=== PATIENT | female | born 1985 | race Two or more races ===

== ENCOUNTER 2024-09-16 15:24 | Emergency (ER) | payer MEDICAID, SELFPAY ==
[2024-09-16 15:54] VITALS: BP 115/81; PULSE 120; RESP 18; TEMP 36.9; O2SAT 95; BMI 32.0
--- NOTE | 2024-09-16 15:59 | XR_ITS ---
Examination: CT abdomen and pelvis without contrast. Coronal 3-D reconstructions. Sagittal 2-D reconstructions. Date and time of exam:09/16/2024 1604 hours INDICATIONS: Lower abdominal pain nausea vomiting beginning 3 days ago CTDI: vol (mGy): 10.4 DLP: (mGycm): 645 Technique: Axial images of the abdomen have been obtained, 3 mm slice thickness Intravenous contrast material has not been administered. Low dose protocols were performed. One or more of the following dose reduction techniques were used; automated exposure control, adjustment of the mA and/or KV according to patient size, use of iterative reconstruction technique. Findings: Axial image 5 demonstrates intracapsular right breast implant rupture No visualized liver or splenic lesion Absent gallbladder No enlargement common bile duct No pancreatic or adrenal mass No renal or ureteral calculi, no hydronephrosis Aorta is not enlarged Normal appendix Small bowel loops show fluid distention and mild wall thickening Anteverted uterus Poorly defined partially hypodense mass above the bladder in the pelvis, which may measure up to 8 cm in transverse dimension Urinary bladder intact Advanced disc narrowing L5-S1 IMPRESSION: Consider elective MRI breast without contrast follow-up to confirm intracapsular right breast implant rupture Poorly defined partially hypodense mass above the bladder in the pelvis, measuring up to 8 cm in transverse dimension, recommend transvaginal transabdominal pelvic sonography follow-up Small bowel ileus versus enteritis
--- NOTE | 2024-09-16 15:59 | PD.EDRME ---
Rapid Medical Screening Exam RME Arrival date/time: 09/16/24 15:24 39-year-old female presents to the emergency department for complaint of generalized abdominal pain Chief Complaint: Abdominal Pain Vital signs: Vital Signs Temperature 98.5 F 09/16/24 15:54 Pulse Rate 120 H 09/16/24 15:54 Respiratory Rate 18 09/16/24 15:54 Blood Pressure 115/81 09/16/24 15:54 Pulse Oximetry (%) 95 09/16/24 15:54 Oxygen Delivery Method Room Air 09/16/24 15:54
[2024-09-16] MEDS: KETOROLAC INJ 30 MG/ML VIAL IM (16:34)
[2024-09-16 16:35] LABS: Basophils % (Auto) 0 % (0-2.5); Eosinophils % (Auto) 0 % (0-10); Hematocrit 42.9 % (36.0-46.0); Hemoglobin 14.6 g/dL (12.0-16.0); Immature Granulocytes % (Auto) 0 % (0-0); Immature Granulocytes Auto 0.03 Thou/mm3 (0.00-0.00); Lymphocytes # (Auto) 0.7 Thou/mm3 (1.0-4.8); Lymphocytes % (Auto) 6 % (10-50); Mean Corpuscular Hemoglobin 30.3 pg (25.0-35.0); Mean Corpuscular Volume 89 fL (80-100); Monocytes # (Auto) 0.7 Thou/mm3 (0.0-0.8); Monocytes % (Auto) 6 % (0-12); Neutrophils # (Auto) 10.3 Thou/mm3 (1.8-7.7); Neutrophils % (Auto) 88 % (37-80); Nucleated Red Blood Cell % 0 /100 WBC (0); Platelet Count 266 Thou/mm3 (140-440); RDW Standard Deviation 43.2 fL (36.4-46.3); Red Blood Count 4.82 Miln/mm3 (4.00-5.20); White Blood Count 11.7 Thou/mm3 (3.6-11.0)
[2024-09-16 16:47] LABS: Alanine Aminotransferase 17 U/L (10-49); Albumin, Serum 4.6 gm/dL (3.5-5.0); Albumin/Globulin Ratio 1.6 (1.2-2.2); Alkaline Phosphatase 86 U/L (46-116); Anion Gap 8 (7-16); Aspartate Amino Transferase 19 U/L (0-34); BUN/Creatinine Ratio 20 Ratio (12-20); Bilirubin,Total 0.4 mg/dL (0.3-1.2); Blood Urea Nitrogen 18 mg/dL (9-23); Calcium 9.6 mg/dL (8.3-10.6); Calcium (Corrected) 9.6 mg/dL (8.5-10.1); Carbon Dioxide 28.1 mMol/L (20.0-31.0); Chloride 104 mMol/L (98-107); Creatinine (Component) 0.9 mg/dL (0.6-1.3); Estimated Creatinine Clearance 94.8 mL/min (>60); Globulin 2.9 gm/dL (2.3-3.5); Glucose 106 mg/dL (74-106); Lipase 38 U/L (12-53); Osmolality,Calculated 281 (275-295); Potassium 4.2 mMol/L (3.4-5.1); Sodium 140 mMol/L (136-145); Total Protein 7.5 gm/dL (5.7-8.2); Troponin I < 0.002 ng/mL (0.0-0.045); eGFR > 60 See Note
[2024-09-16 16:56] LABS: HCG Qualitative,Urine Negative
--- NOTE | 2024-09-16 17:44 | PD.EDABDPN ---
ED Abdominal Pain RME/HPI General Chief Complaint: Abdominal Pain Stated complaint: Abdominal pain x3 days Time seen by provider: 09/16/24 17:40 Arrival date/time: 39-year-old female is here today with intermittent epigastric pain. She states is has been occurring for a number of years but got worse over the past 2 to 3 days. She had 1 episode of loose stool this morning with no blood. She has no vomiting. She has no urinary changes. She denies any fevers or chills. She has a remote history of cholecystectomy. She has no other acute complaints. Limitations: no limitations RME / HPI RME / HPI narrative: 09/16/24 15:24 39-year-old female presents to the emergency department for complaint of generalized abdominal pain Related Data Home Medications ?Medication ?Instructions ?Recorded ?Confirmed fluticasone propionate 50 2 spray intranasal QDAY 09/21/18 04/16/19 mcg/actuation nasal spray,suspension montelukast 10 mg tablet 10 mg PO QPM 09/21/18 04/16/19 (Singulair) loratadine 10 mg tablet (Claritin) 10 mg PO QDAY 04/16/19 04/16/19 Previous Rx's ?Medication ?Instructions ?Recorded albuterol sulfate 90 mcg/actuation 2 puff inhalation Q6H #18 grams 04/16/19 aerosol inhaler albuterol sulfate 90 mcg/actuation 2 puff inhalation QID #8.5 grams 10/03/21 aerosol inhaler diphenhydramine HCl 25 mg capsule 50 mg (2 x 25 mg) PO TID PRN 10/03/21 (Benadryl) allergic reaction #30 caps epinephrine 0.3 mg/0.3 mL 0.3 ml subcut .once PRN 10/03/21 injection, auto-injector hypersensitivity reaction #2 ea diphenhydramine HCl 25 mg capsule 25 mg PO TID PRN allergic reaction 12/11/22 (Benadryl) #14 caps prednisone 50 mg tablet 50 mg PO QDAY #5 tabs 12/11/22 ibuprofen 800 mg tablet 800 mg PO TID PRN pain #30 tabs 01/22/23 omeprazole 20 mg capsule,delayed 20 mg PO QDAY #30 caps 09/16/24 release Allergies Allergy/AdvReac Type Severity Reaction Status Date / Time metronidazole (From Flagyl) Allergy Unknown Swelling Verified 12/11/22 21:36 of Lip/Tongue/Throat Review of Systems Review of Systems Systems Reviewed: All systems reviewed, normal except as documented ED Exam General Limitations: Present no limitations General appearance: Present alert and in no apparent distress Head Head exam: Present atraumatic Eye Eye exam: Present normal appearance, PERRL and EOMI ENT ENT exam: Present normal exam, normal oropharynx and mucous membranes moist Neck Neck exam: Present normal inspection, full ROM and trachea midline Chest Chest inspection: Present normal inspection and symmetric chest wall rise Respiratory Respiratory exam: Present normal lung sounds bilaterally Cardiovascular Cardiovascular exam: Present regular rate, normal rhythm and normal heart sounds Abdominal Exam Abdominal exam: Present soft and normal bowel sounds Extremities Exam Extremities exam: Present normal inspection and full ROM Back Exam Back exam: Present normal inspection and full ROM Neurological Exam Neurological exam: Present alert and oriented X3 Psychiatric Psychiatric exam: Present normal affect and normal mood Skin Skin exam: Present warm, dry, intact and normal color Course Quality Measures none Orders Category Date Time Status CT abdomen pelvis wo con Stat Exams 09/16/24 15:59 Completed CBC Stat Lab 09/16/24 16:14 Completed Comprehensive Metabolic Panel Stat Lab 09/16/24 16:14 Completed HCG Qualitative,Urine Stat Lab 09/16/24 16:20 Completed Lipase Stat Lab 09/16/24 16:14 Completed Troponin I Stat Lab 09/16/24 16:14 Completed Ketorolac Inj [Toradol Inj] Med 09/16/24 15:59 Discontinued 30 mg IM X1 ONE Vital Signs Vital signs: Vital Signs Temperature 98.5 F 09/16/24 15:54 Pulse Rate 120 H 09/16/24 15:54 Respiratory Rate 18 09/16/24 15:54 Blood Pressure 115/81 09/16/24 15:54 Pulse Oximetry (%) 95 09/16/24 15:54 Oxygen Delivery Method Room Air 09/16/24 15:54 Abdominal Pain MDM MDM Narrative MDM Narrative:: 39-year-old female who is here to intermittent episodes of epigastric pain that got worse today. She has a heart rate of 106 at the time my exam, her vital signs are otherwise stable. She has a very mild leukocytosis at 11.7 thousand. CBC is otherwise essentially unremarkable. She has no elevations in her liver enzymes or bilirubin. Pancreatic enzymes are normal. Patient data External records reviewed:: None Clinical information provided by:: patient Social determinants that could affect healthcare access:: none Patient has the following chronic illnesses:: n/a How is presenting disease/condition affected by chronic disease/condition?: no chronic disease Evaluation data The following diagnostics were reviewed and interpreted by me:: lab results Lab and/or radiology exams considered but not ordered:: n/a Interpretation Summary: Unremarkable for any acute pathology Medications / Prescriptions Medications or Prescriptions considered but not ordered:: n/a Medication administrations:: Medication Administration History Discontinued Medications Ketorolac Tromethamine (Ketorolac Inj 30 Mg/Ml Vial) 30 mg IM X1 ONE Stop: 09/16/24 16:00 Last Admin: 09/16/24 16:34 Dose: 30 mg Documented By: KF See above Consultations Consultation(s) initiated? (list below): No Diagnosis Differential diagnosis abdominal pain: abdominal pain, gastroenteritis, pancreatitis and small bowel obstruction Most likely diagnosis given after review of the tests above:: Epigastric pain Admission Indicated Admission indicated?: not indicated Admission Request Was there a request for admission?: No Disposition Plan Disposition Plan: Discharge Discharge Attestation Discharge Attestation: The patient and all family members were given an opportunity to ask questions and understood the discharge instructions. Discharge instructions specifically effects, indications for sooner follow up or return to the emergency department, and the expected course of current diagnosis. Patient condition: Stable Discharge Plan Plan Patient Disposition: HOME (Self Care) Patient condition on transfer: Stable Prescriptions/Referrals Prescriptions/Med Rec: New omeprazole 20 mg capsule,delayed release(DR/EC) 20 mg PO QDAY Qty: 30 0RF No Action montelukast [Singulair] 10 mg tablet 10 mg PO QPM fluticasone propionate 50 mcg/actuation spray,suspension 2 spray INTRANASAL QDAY loratadine [Claritin] 10 mg tablet 10 mg PO QDAY albuterol sulfate 90 mcg/actuation HFA aerosol inhaler 2 puff INH Q6H Qty: 18 0RF albuterol sulfate 90 mcg/actuation HFA aerosol inhaler 2 puff inhalation QID Qty: 8.5 0RF diphenhydramine HCl [Benadryl] 25 mg capsule 50 mg PO TID PRN (Reason: allergic reaction) Qty: 30 0RF epinephrine 0.3 mg/0.3 mL auto-injector 0.3 ml subcut .once PRN (Reason: hypersensitivity reaction) Qty: 2 0RF prednisone 50 mg tablet 50 mg PO QDAY Qty: 5 0RF diphenhydramine HCl [Benadryl] 25 mg capsule 25 mg PO TID PRN (Reason: allergic reaction) Qty: 14 0RF ibuprofen 800 mg tablet 800 mg PO TID PRN (Reason: pain) Qty: 30 0RF Referrals: Barbara Chávez MD [Primary Care Provider] - In 1 week Problem List Clinical Impression: Abdominal pain Patient/Caregiver Discharge Instructions Education Materials: Abdominal Pain Additional Instructions: - Use the provided medications as prescribed. - Contact your primary doctor to schedule a close follow-up appointment. - Return to the emergency room at anytime for any worsening or emergent changes. Print Language: Hebrew Stand Alone Forms: [facility] Award Info., Patient Portal Info Letter
[2024-09-16 17:46] VITALS: BP 132/82; PULSE 106; RESP 14
== END 2024-09-16 18:45 | disposition home or self-care (01) ==
PROVIDERS: Nurse Practitioner Primary Care; Emergency Provider Family Medicine; PCP Internal Medicine
DX: R19.00 Intra-abdominal and pelvic swelling, mass and lump, unspecified site (principal)
CPT/HCPCS: 36415; 74176; 80053; 81025; 83690; 84484; 85025; 96372; 99284; J1885